=== PATIENT | female | born 1945 | race Caucasian/White ===

== ENCOUNTER 2017-06-15 14:27 | Observation (INO) | payer MEDICARE ==
[~2017-06-15] VITALS: Ht 152.4 cm; Wt 66.2 kg
[~2017-06-15 14:27] MED LIST: ASPIRIN 81M81 MG/TA2 PO; MIRAPEX0.25 MG PO; TYLENOL 325MG325 MG PO; ZESTRIL 10MG10 MG PO
[2017-06-15] MEDS ORDERED: PLAVIX 75MG TAB75 MG PO (14:35)
[2017-06-15] MEDS ORDERED: LIORESAL 1010 MG/TAB PO (14:35)
[2017-06-15] MEDS ORDERED: LIPITOR 10MG10 MG PO (14:35)
[2017-06-15] MEDS ORDERED: ASPIRIN 32325 MG/TAB PO (14:36)
[2017-06-15] MEDS ORDERED: PRINIVIL10 MG PO (14:36)
[2017-06-15 15:22] LABS: BASO % 0.5 % (0.0-2.0); EOS % 0.6 % (0-4.0); GRAN # 3.8 (1.4-6.5); GRAN % 61.2 % (42.2-75.2); HEMATOCRIT 38.3 % (37.0-47.0); LYMPH # 1.9 (1.2-3.4); LYMPH % 31.1 % (20.0-51.0); MEAN CELL VOLUME 91 fl (80.0-100.0); MEAN CORPUSCULAR HEMOGLOBIN 31 pg (27.0-31.0); MEAN CORPUSCULAR HGB CONC 34 g/dl (33.0-37.0); MEAN PLATELET VOLUME 9.8 fl (7.4-10.4); MONO # 0.4 (0.1-0.6); MONO % 6.4 % (1.7-9.3); PLATELET COUNT 289 K/mm3 (130-400); RED BLOOD COUNT 4.19 M/mm3 (4.10-5.30); REDCELL DISTRIBUTION WIDTH-CV 12.9 % (11.5-14.5); WHITE BLOOD COUNT 6.2 K/mm3 (4.8-10.8)
[2017-06-15 15:31] LABS: INR 1.1 (0.8-3.0); PROTHROMBIN TIME 11.7 SECONDS (9.7-12.8)
[2017-06-15 15:34] LABS: PARTIAL THROMBOPLASTIN TIME 28.7 SECONDS (26.0-37.0)
[2017-06-15 15:35] LABS: ADJUSTED CALCIUM 9.3 mg/dL (8.4-10.2); ALBUMIN 4.8 gm/dL (3.5-5.0); BILIRUBIN,TOTAL 0.7 mg/dL (0.0-1.0); CALCIUM 9.9 mg/dL (8.4-10.2); CREATININE, serum 0.82 mg/dL (0.52-1.25); POTASSIUM 4.3 mmol/L (3.4-5.0); TOTAL PROTEIN 7.8 gm/dL (6.4-8.2)
[2017-06-15 15:45] LABS: ERYTHROCYTE SEDIMENTATION RATE 13 mm/hr (0-30)
[2017-06-15 17:24] VITALS: BP 150/59; PULSE 69; TEMP 98
[2017-06-15 21:40] VITALS: BP 147/49; PULSE 70; TEMP 98.2
[2017-06-16 00:20] VITALS: BP 125/56; PULSE 74; TEMP 98.2
[2017-06-16 04:10] VITALS: BP 107/46; PULSE 74; TEMP 98.1
[2017-06-16 07:07] VITALS: BP 113/50; PULSE 71; TEMP 98.3
[2017-06-16 11:47] VITALS: BP 121/47; PULSE 77; TEMP 98.4
[2017-06-17 15:19] LABS: HOMOCYSTEINE 4.9 umol/L (4.0-14.0)
[2017-06-21 14:55] LABS: CYP2C19 GENOTYPE XXX
== END 2017-06-16 15:45 | disposition home or self-care (01) ==
LOC: COL.ER 14:27 → MEDICAL 16:32
PROVIDERS: Emergency Medicine; Nurse Practitioner Family; Psychiatry & Neurology Neurology
DX: G45.9 Transient cerebral ischemic attack, unspecified (principal); I10 Essential (primary) hypertension; G25.81 Restless legs syndrome; Z86.73 Personal history of transient ischemic attack (TIA), and cerebral infarction without residual deficits
CPT/HCPCS: A9585; G0378; J1650